=== PATIENT | male | born 1955 | race Caucasian/White ===

== ENCOUNTER 2018-09-28 17:16 | Emergency (ER) | payer OTHER ==
[2018-09-28 17:34] VITALS: BP 119/79
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
[2018-09-28 19:31] LABS: ABSOLUTE LYMPHOCYTES (AUTO) 1.5 10^3/uL (0.5-4.7); ABSOLUTE MONOCYTES (AUTO) 0.6 10^3/uL (0.1-1.4); ABSOLUTE NEUT (AUTO) 3.4 10^3/uL (1.7-8.2); BASOPHILS % (AUTO) 0.4 % (0-2); EOSINOPHILS % (AUTO) 0.3 % (0-6); HEMATOCRIT 47.1 % (37.9-51.0); LYMPHOCYTES % (AUTO) 27.8 % (13-45); MEAN CORPUSCULAR HEMOGLOBIN 36.4 pg (27.0-33.4); MEAN CORPUSCULAR VOLUME 107 fl (80-97); PLATELET COUNT 136 10^3/uL (150-450); RED CELL DISTRIBUTION WIDTH 13.8 % (11.5-14.0); SEGMENTED NEUTROPHILS % (AUTO) 61.5 % (42-78); TOTAL CELLS COUNTED % (AUTO) 100 %; WHITE BLOOD COUNT 5.5 10^3/uL (4.0-10.5)
[2018-09-28 19:47] LABS: APPEARANCE,URINE SLIGHTLY-CLOUDY; BILIRUBIN,URINE NEGATIVE (NEGATIVE); COLOR,URINE AMBER; GLUCOSE, URINE NEGATIVE (NEGATIVE); KETONES,URINE 20 mg/dL (NEGATIVE); LEUKOCYTE ESTERASE,URINE SMALL (NEGATIVE); NITRITE,URINE NEGATIVE (NEGATIVE); PROTEIN,URINE 100 mg/dL (NEGATIVE)
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
[2018-09-28 19:58] LABS: ALANINE AMINOTRANSFERASE 68 U/L (21-72); ALBUMIN 5.1 g/dL (3.5-5.0); ALCOHOL 237 mg/dL (NONE DETECTED); ALKALINE PHOSPHATASE 127 U/L (38-126); ANION GAP 16 (5-19); ASPARTATE AMINO TRANSFERASE 330 U/L (17-59); BILIRUBIN,DIRECT 0.6 mg/dL (0.0-0.4); BILIRUBIN,TOTAL 0.9 mg/dL (0.2-1.3); BLOOD UREA NITROGEN 7 mg/dL (7-20); CALCIUM 9.9 mg/dL (8.4-10.2); CARBON DIOXIDE 26 mmol/L (22-30); CHLORIDE 96 mmol/L (98-107); GLUCOSE 94 mg/dL (75-110); POTASSIUM 4.5 mmol/L (3.6-5.0); SODIUM 138.3 mmol/L (137-145); TOTAL PROTEIN 8.9 g/dL (6.3-8.2)
[2018-09-28 20:03] LABS: URINE AMPHETAMINES SCREEN NEGATIVE; URINE BARBITURATES SCREEN NEGATIVE; URINE BENZODIAZEPINES SCREEN NEGATIVE; URINE COCAINE SCREEN NEGATIVE; URINE MARIJUANA (THC) SCREEN NEGATIVE; URINE METHADONE SCREEN NEGATIVE; URINE PHENCYCLIDINE SCREEN NEGATIVE
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
== END 2018-09-28 22:59 | disposition home or self-care (01) ==
LOC: ER 17:16
DX: F10.920 Alcohol use, unspecified with intoxication, uncomplicated (principal); Y90.7 Blood alcohol level of 200-239 mg/100 ml; R10.30 Lower abdominal pain, unspecified; M25.561 Pain in right knee; G47.9 Sleep disorder, unspecified; F17.210 Nicotine dependence, cigarettes, uncomplicated; I10 Essential (primary) hypertension; Z85.46 Personal history of malignant neoplasm of prostate
CPT/HCPCS: 36415; 70450; 72125; 80053; 80307; 81001; 85025; 87086; 87088; 87186; 99283

== ENCOUNTER → 2019-02-13 | Outpatient (CLI) | payer OTHER ==
--- NOTE | 2019-02-13 09:43 | RADIOLOGY REPORT (SQ) ---
EXAM DESCRIPTION: CERV SP 4 OR 5 VIEWS COMPLETED DATE/TIME: 02/13/2019 9:25 am REASON FOR STUDY: BACK PAIN COMPARISON: 09/28/2018 NUMBER OF VIEWS: Five views. TECHNIQUE: AP, lateral, obliques and odontoid radiographic images acquired of the cervical spine. LIMITATIONS: None. FINDINGS: MINERALIZATION: Normal. ALIGNMENT: Anatomic. VERTEBRAE: Vertebral bodies without definite fracture. There are multilevel endplate degenerative ch alison with osteophytosis and endplate irregularity. . DISCS: Multilevel endplate change with mild disc height loss greatest at C5-6. Disc spaces are relat ively well-maintained. FORAMINA: Uncovertebral and mild facet hypertrophy with resultant mild osseous neural foraminal narro wing greatest at C5-6 bilaterally. LATERAL AND POSTERIOR ELEMENTS: No dislocation. Minimal facet arthropathy. HARDWARE: None in the spine. SOFT TISSUES: Vascular calcifications. OTHER: No other significant finding. IMPRESSION: 1. No evidence of acute bony abnormality of the cervical spine. 2. Multilevel endplate degenerative change greatest at C5-6. Mild bilateral osseous neural foramina l narrowing from uncovertebral facet hypertrophy. TECHNICAL DOCUMENTATION: JOB ID: [id number]- All Rights Reserved Reading location - IP/workstation name: [email or web address]
== END ==
LOC: RAD 08:41
PROVIDERS: ATTEND Family Medicine
DX: M54.2 Cervicalgia (principal)
CPT/HCPCS: 72050

== ENCOUNTER 2019-03-06 20:51 | Emergency (ER) | payer SELFPAY ==
[2019-03-06 21:45] LABS: ABSOLUTE BASOPHILS # (AUTO) 0.1 10^3/uL (0.0-0.2); ABSOLUTE EOSINOPHILS # (AUTO) 0.1 10^3/uL (0.0-0.6); ABSOLUTE LYMPHOCYTES (AUTO) 1.3 10^3/uL (0.5-4.7); ABSOLUTE NEUT (AUTO) 13.1 10^3/uL (1.7-8.2); BASOPHILS % (AUTO) 0.9 % (0-2); EOSINOPHILS % (AUTO) 0.7 % (0-6); HEMATOCRIT 46.3 % (37.9-51.0); HEMOGLOBIN 15.6 g/dL (13.5-17.0); MEAN CORPUSCULAR HEMOGLOBIN 32.1 pg (27.0-33.4); MEAN CORPUSCULAR HGB CONC 33.7 g/dL (32.0-36.0); MEAN CORPUSCULAR VOLUME 95 fl (80-97); MONOCYTES % (AUTO) 6.5 % (3-13); PLATELET COUNT 316 10^3/uL (150-450); RED BLOOD COUNT 4.86 10^6/uL (4.35-5.55); RED CELL DISTRIBUTION WIDTH 14.3 % (11.5-14.0); SEGMENTED NEUTROPHILS % (AUTO) 83.9 % (42-78); TOTAL CELLS COUNTED % (AUTO) 100 %; WHITE BLOOD COUNT 15.6 10^3/uL (4.0-10.5)
[2019-03-06] MEDS ORDERED: NORMAL SALINE 500 ML IV ONE ×2 (21:50→22:59)
--- NOTE | 2019-03-06 21:52 | ER Document Report ---
ED General - General Chief Complaint: Weakness Stated Complaint: WEAKNESS Time Seen by Provider: 03/06/19 21:40 Primary Care Provider: [facility] [Provider Group] - Follow up in 3-5 days Notes: Patient is a 63-year-old male that comes from home by EMS for chief complaint of generalized worsening weakness for the past couple weeks. He also states he has some pain in his left shoulder and back intermittently. He states pain will run down the top of his shoulder to his left arm mainly. He denies numbness or weakness. He denies vomiting, fever, chest pain, shortness of breath. He states that he was just released from [facility] where he was incarcerated for a short term after a DWI. He states he has a history of prostate cancer and he is incontinent as a result but he denies medical history otherwise. He denies any current medications. He does not see a local primary care. Patient speaks some Kinyarwanda but mostly speaks Cymro and requires the fruux telegraph messenger system. TRAVEL OUTSIDE OF THE [place] IN LAST 30 DAYS: No - Related Data Allergies/Adverse Reactions: No Known Allergies Allergy (Verified 09/28/18 17:19) Past Medical History - General Information source: Patient - Social History Smoking Status: Current Every Day Smoker Smoking Education Provided: Yes - <3 min Frequency of alcohol use: Heavy Drug Abuse: None Lives with: Family Family History: Reviewed & Not Pertinent Patient has suicidal ideation: No Patient has homicidal ideation: No - Past Medical History Cardiac Medical History: Reports: Hx Hypertension Renal/ Medical History: Denies: Hx Peritoneal Dialysis Malignancy Medical History: Reports Hx Prostate Cancer Past Surgical History: Reports: Other - Prostate surgery 2016 - Immunizations Hx Diphtheria, Pertussis, Tetanus Vaccination: Yes Review of Systems - Review of Systems Constitutional: See HPI EENT: No symptoms reported Cardiovascular: See HPI Respiratory: No symptoms reported Gastrointestinal: No symptoms reported Genitourinary: No symptoms reported Male Genitourinary: No symptoms reported Musculoskeletal: See HPI Skin: No symptoms reported Hematologic/Lymphatic: No symptoms reported Neurological/Psychological: See HPI Physical Exam - Vital signs Vitals: Temp Pulse Resp BP Pulse Ox 98.4 F 122 H 20 184/107 H 93 03/06/19 20:55 03/06/19 20:55 03/06/19 20:55 03/06/19 20:55 03/06/19 20:55 - Notes Notes: GENERAL: Alert, interacts well. Somewhat chronically ill-appearing. Thin. HEAD: Normocephalic, atraumatic. EYES: Pupils equal, round, and reactive to light. Extraocular movements intact. ENT: Oral mucosa dry, tongue midline. Oropharynx unremarkable. Airway patent. NECK: Full range of motion. Supple. Trachea midline. LUNGS: Clear to auscultation bilaterally, no wheezes, rales, or rhonchi. No respiratory distress. HEART: Regular rate and rhythm. No murmur ABDOMEN: Soft, non-tender. Non-distended. EXTREMITIES: Pain with range of motion of the left upper extremity, pain is mainly in the left posterior shoulder. Moves all 4 extremities spontaneously. No edema, normal radial and dorsalis pedis pulses bilaterally. No cyanosis. BACK: Some mild generalized tenderness over the mid to upper back mainly over the paracervical region. No cervical, thoracic, lumbar midline tenderness. No saddle anesthesia, normal distal neurovascular exam. Moves all extremities in full range of motion. NEUROLOGICAL: Alert and oriented x3. Normal speech. Cranial nerves II through XII grossly intact. PSYCH: Normal affect, normal mood. SKIN: Warm, dry, normal turgor. No rashes or lesions noted. Course - Re-evaluation Re-evalutation: Patient was tachycardic initially, however he was given IV fluids and after the second bolus of 500 cc normal saline his tachycardia resolved. Patient is very restless in bed initially but this improved. He does have generalized pain over his back, this is worse on palpation and with movement. He states this is been ongoing. He also states that he is eating very poorly, he admits to drinking alcohol on a regular basis, he states he did not feel good after he eats and therefore he is eating less and is losing weight. Patient was given p.o., he tolerated this without any difficulty after being provided with medications. CBC shows leukocytosis, nonspecific, urine clean, chest x-ray unremarkable, vital signs unremarkable except for episodes of hypertension, patient is very thin and does not cooperate with blood pressure getting checked, this was checked manually and is 180 systolic. I discussed this with patient. Patient states that he does need primary care and he will follow-up if referred to have this treated. He also states that he would take medications for his stomach and muscle relaxers for his back. His EKG is nonspecific, 2 troponins are negative without significant change, he has not actually had any chest pain, shortness of breath, dizziness, vomiting, fever, or passing out. On reevaluation his only complaint is musculoskeletal pain in his back. He is conversational and nontoxic. I did have to use the telegraph messenger system because he mainly speaks Cymro. I do not suspect underlying infection, I do not see evidence of ACS, patient is able to stand and walk, he has no neurological deficits. Patient states appreciation for care and evaluation and he states he is ready to go home, he states that he lives with his daughter and he wants her to pick him up. He states that he realizes how much his smoking and alcohol have impacted him and his health is getting worse, he states that he is going to stop drinking first. He denies history of withdrawals. There is no obvious cancerous lesion on the chest x-ray in the locations of his pain, he states he will follow-up with primary care for additional testing however. He does state that he will come back if he worsens including headache, chest pain, fever, or any other worsening symptoms. He does state that he will follow-up close with primary care for evaluation because he has been losing a lot of weight and because his blood pressures are abnormal here tonight. Patient discharged with return precautions. - Vital Signs Vital signs: Temp Pulse Resp BP Pulse Ox 98.1 F 82 19 180/100 H 94 03/07/19 05:46 03/07/19 05:46 03/07/19 05:46 03/07/19 05:46 03/07/19 05:46 - Laboratory Result Diagrams: 03/06/19 21:26 03/06/19 21:26 Laboratory results interpreted by me: 03/06/19 03/06/19 03/06/19 21:26 21:26 21:40 WBC 15.6 H RDW 14.3 H Lymph % (Auto) 8.0 L Absolute Neuts (auto) 13.1 H Seg Neutrophils % 83.9 H Carbon Dioxide 21 L Calcium 10.4 H Alkaline Phosphatase 206 H Urine Ketones TRACE H - EKG Interpretation by Me Additional EKG results interpreted by me: EKG shows sinus tachycardia at a rate of 121, borderline Q waves inferiorly, no overt T wave inversions or ST segment changes in consecutive leads. QTC of 454. Discharge - Discharge Clinical Impression: Generalized weakness, Alcohol abuse, Dehydration, Elevated blood pressure reading Back pain Qualifiers: Back pain location: back pain in unspecified location Chronicity: chronic Back pain laterality: left Qualified Code(s): M54.9 - Dorsalgia, unspecified Left shoulder pain Qualifiers: Chronicity: acute Qualified Code(s): M25.512 - Pain in left shoulder Condition: Stable Disposition: HOME, SELF-CARE Instructions: Oral Narcotic Medication ([facility]) Additional Instructions: Your tests do not show concerning findings other than some dehydration today. I am concerned your alcohol use has made your stomach inflamed and made it hard to eat. Drink fluids, take the carafate and pepcid for your stomach. Take the robaxin for your body aches. Your blood pressure needs to be rechecked and you need more tests to make sure your weight loss and eating problem go away. Please call the listed office and be seen for more testing. Take the phenergan for nausea if you need to. Stop drinking alcohol. Come back if you are worse (throwing up, fever, chest pain, difficulty breathing, abdominal pain, passing out, etc). Twoje testy georgina pokazuja dzisiaj innych wynikw ni niektre odwodnienie. Obawiam sie, ze spoywanie alkoholu spowodowao valeri zapalny odka i utrudnio jedzenie. Pij pyny, we karafat i pieprz do ?o??dka. We? robaksyn? na ble kit?a. Twoje ci?nienie krwi musi zosta? ponownie sprawdzone i potrzebujesz wi?cej testw, alexander upewni? si?, ?e utrata masy kit?a i problemy z jedzeniem znikn?. Zadzwo? do wymienionego biura i zobacz wi?cej testw. Je?li potrzebujesz, we? fenergan na nudno?ci. Przesta? pi? alkohol. Wr?, je?li jeste? niranjan (wymiotowanie, gor?czka, bl w klatce robertsiowej, trudno?ci w haim, bl hamlet mancia itp.). Prescriptions: Sucralfate [Carafate 1 gm Tablet] 1 gm PO QID #20 tablet Famotidine [Pepcid 20 mg Tablet] 20 mg PO BID #20 tablet Promethazine HCl [Phenergan 25 mg Tablet] 25 mg PO Q6H PRN #20 tablet PRN Reason: Methocarbamol [Robaxin 500 mg Tablet] 500 mg PO QID PRN #20 tablet PRN Reason: Forms: Smoking Cessation Education, Elevated Blood Pressure Referrals: [facility] [Provider Group] - Follow up in 3-5 days
[2019-03-06 21:55] LABS: ALBUMIN 4.3 g/dL (3.5-5.0); ALKALINE PHOSPHATASE 206 U/L (38-126); ANION GAP 15 (5-19); ASPARTATE AMINO TRANSFERASE 23 U/L (17-59); BILIRUBIN,DIRECT 0.1 mg/dL (0.0-0.4); BILIRUBIN,TOTAL 0.5 mg/dL (0.2-1.3); BLOOD UREA NITROGEN 12 mg/dL (7-20); CALCIUM 10.4 mg/dL (8.4-10.2); CARBON DIOXIDE 21 mmol/L (22-30); CHLORIDE 101 mmol/L (98-107); GLUCOSE 105 mg/dL (75-110); POTASSIUM 4.8 mmol/L (3.6-5.0); TOTAL PROTEIN 7.8 g/dL (6.3-8.2)
[2019-03-06 22:02] LABS: APPEARANCE,URINE CLEAR; BILIRUBIN,URINE NEGATIVE (NEGATIVE); COLOR,URINE YELLOW; GLUCOSE, URINE NEGATIVE (NEGATIVE); KETONES,URINE TRACE mg/dL (NEGATIVE); LEUKOCYTE ESTERASE,URINE NEGATIVE (NEGATIVE); NITRITE,URINE NEGATIVE (NEGATIVE); PROTEIN,URINE NEGATIVE (NEGATIVE); URINE SPECIFIC GRAVITY 1.015; UROBILINOGEN,URINE NEGATIVE mg/dL (<2.0)
--- NOTE | 2019-03-06 22:42 | RADIOLOGY REPORT (SQ) ---
EXAM DESCRIPTION: XR CHEST 1 VIEW COMPLETED DATE/TME: 03/06/2019 21:50 CLINICAL HISTORY: 63 years Male weakness COMPARISON: None. FINDINGS: Pulmonary hyperinflation consistent with COPD. Scarring or atelectasis adjacent to the left heart border. Aorta is mildly tortuous. The cardiomediastinal silhouette appears unremarkable. No consolidating infiltrates or pleural effusions. No pneumothorax. IMPRESSION: Pulmonary hyperinflation consistent with COPD and emphysematous change No acute abnormality is identified.
[2019-03-07] MEDS ORDERED: ACETAMINOPHEN 325 MG TABLET PO ONE (00:54)
[2019-03-07] MEDS ORDERED: OXYCODONE HCL IR 5 MG TABLET PO ONE (04:09)
[2019-03-07] MEDS ORDERED: SUCRALFATE 1 GM TABLET PO ONE (04:09)
[2019-03-07] MEDS ORDERED: HYDROCODONE/ACETAMINOPHEN 5-325 MG (6 TAB/ER DISP) PO PRN (04:25)
[2019-03-07 05:47] VITALS: BP 180/100
--- NOTE | 2019-03-07 23:42 | EKG REPORT ---
SEVERITY:- ABNORMAL ECG - SINUS TACHYCARDIA INFERIOR INFARCT, AGE INDETERMINATE CONSIDER ANTERIOR INFARCT : Confirmed by: Robb Conner 07-Mar-2019 23:42:04
== END 2019-03-07 06:24 | disposition home or self-care (01) ==
LOC: ER 20:51
DX: R53.1 Weakness (principal); F10.10 Alcohol abuse, uncomplicated; E86.0 Dehydration; M25.512 Pain in left shoulder; F17.200 Nicotine dependence, unspecified, uncomplicated; I10 Essential (primary) hypertension; Z85.46 Personal history of malignant neoplasm of prostate
CPT/HCPCS: 93005; 99284; 96360; 36415; 80307; 83690; 83735; 85025; 80053; 81001; 84484; 71045; 93010; J7040

== ENCOUNTER 2019-03-22 18:24 | Emergency (ER) | payer SELFPAY ==
--- NOTE | 2019-03-22 21:00 | EKG REPORT ---
SEVERITY:- ABNORMAL ECG - SINUS TACHYCARDIA ATRIAL PREMATURE COMPLEX PROBABLE LEFT ATRIAL ABNORMALITY LEFT VENTRICULAR HYPERTROPHY BORDERLINE PROLONGED QT INTERVAL : Confirmed by: Filippo Kirkland MD 22-Mar-2019 20:59:45
[2019-03-22] MEDS ORDERED: OXYCODONE HCL IR 5 MG TABLET PO ONE (21:21)
--- NOTE | 2019-03-22 21:21 | ER Document Report ---
ED General - General Chief Complaint: Arm Pain Stated Complaint: ARM PAIN Time Seen by Provider: 03/22/19 21:04 Primary Care Provider: HODA LINDSEY MD [ACTIVE STAFF] - Follow up in 3-5 days Notes: 63-year-old male presents with bilateral hand pain that is been ongoing for "months." Patient denies any specific injury. Patient states it is intermittent and sometimes he has trouble with his fingers such as changing the channel on the remote due to the pain. Patient states the reason why he called 911 today was because of his right hand pain but his left hand is also hurting. Patient also states that sometimes his back hurts as well. Patient denies any chest pain, shortness of breath, weakness. TRAVEL OUTSIDE OF THE [place] IN LAST 30 DAYS: No - Related Data Allergies/Adverse Reactions: No Known Allergies Allergy (Verified 09/28/18 17:19) Past Medical History - Social History Smoking Status: Unknown if Ever Smoked Family History: Reviewed & Not Pertinent Patient has suicidal ideation: No Patient has homicidal ideation: No - Past Medical History Cardiac Medical History: Reports: Hx Hypertension Renal/ Medical History: Denies: Hx Peritoneal Dialysis Malignancy Medical History: Reports Hx Prostate Cancer Past Surgical History: Reports: Other - Prostate surgery 2016 - Immunizations Hx Diphtheria, Pertussis, Tetanus Vaccination: Yes Review of Systems - Review of Systems Notes: Constitutional: Negative for fever. HENT: Negative for sore throat. Eyes: Negative for visual changes. Cardiovascular: Negative for chest pain. Respiratory: Negative for shortness of breath. Gastrointestinal: Negative for abdominal pain, vomiting or diarrhea. Genitourinary: Negative for dysuria. Musculoskeletal: Positive for bilateral hand pain. Negative for back pain. Skin: Negative for rash. Neurological: Negative for headaches, weakness or numbness. 10 point ROS negative except as marked above and in HPI. Physical Exam - Vital signs Vitals: Resp Pulse Ox 28 H 95 03/22/19 18:58 03/22/19 18:58 - Notes Notes: GENERAL: Well-appearing, well-nourished and in no acute distress. HEAD: Atraumatic, normocephalic. EYES: Pupils equal round and reactive to light, extraocular movements intact, sclera anicteric, conjunctiva are normal. LUNGS: Breath sounds clear to auscultation bilaterally and equal. No wheezes rales or rhonchi. HEART: Regular rate and rhythm without murmurs, rubs or gallops. ABDOMEN: Soft, nontender. No guarding, no rebound. No masses appreciated. EXTREMITIES: Normal range of motion, no pitting or edema. No clubbing or cyanosis. Bilateral hands: no edema, FROM bilaterally, radial pulse 2+. NEUROLOGICAL: Cranial nerves II through XII grossly intact. Normal speech, normal gait. PSYCH: Normal mood, normal affect. SKIN: Warm, Dry, normal turgor, no rashes or lesions noted. Course - Re-evaluation Re-evalutation: 03/22/19 63-year-old male presents with bilateral hand pain that is ongoing for "months". Patient denies any injury. Patient denies any chest pain, shortness of breath, nausea/vomiting. X-ray of bilateral hands ordered. EKG was also ordered and shows no ST elevation. 03/22/19 22:50 Bilateral hand x-rays show mild degenerative changes. Discussed results with pt including that his pain is most likely due to arthritis. Pt given follow up with PCP. Pt also sent home with pain medications. Pt voices understanding and agrees with plan of care. 03/22/19 23:00 [place] drug database reviewed. No recent opioid prescriptions. - Vital Signs Vital signs: Temp Pulse Resp BP Pulse Ox 98.4 F 22 H 173/106 H 95 03/22/19 19:00 03/22/19 21:10 03/22/19 21:10 03/22/19 21:10 Discharge - Discharge Clinical Impression: Bilateral hand pain Condition: Stable Disposition: HOME, SELF-CARE Additional Instructions: Your hand x-ray shows arthritis. Please take medication as prescribed. Do not drink alcohol or drive while taking medication as it may make you drowsy. Follow up with doctor listed in 3-5 days. Return to ER for any worsening symptoms, in cluding fever, worsening pain, chest pain, short of breath, vomiting, or any other symptoms that are concerning to you. Doug d?melvin phong king staww. Prosz? wzi?? michelle jimenez i. Georginaenrico adamsohnatalie ani georgina prowad? jay russo, poniewa? mo?e to [facility]? senno??. Skontaktuj si? z lekarzem wymienionym w ci?gu 3-5 dni. Wr? do pogotowia, alexander uzyska? objawy pogarszaj?ce si?, w tym gor?czk?, nasilaj?cy si? bl, bl w klatce piersiowej, duszno??, wymioty lub wszelkie inne objawy, ktre Ci? dotycz?. Prescriptions: Oxycodone HCl 5 mg PO Q6 #10 capsule Referrals: HODA LINDSEY MD [ACTIVE STAFF] - Follow up in 3-5 days
--- NOTE | 2019-03-22 22:11 | RADIOLOGY REPORT (SQ) ---
XR HAND 3 VIEWS BILATERAL CLINICAL STATEMENT: bilateral hand pain COMPARISON: None FINDINGS: Bony alignment is anatomic. There is no fracture or dislocation. The soft tissues are unremarkable. Mild degenerative changes of the interphalangeal joints. IMPRESSION: No fracture.
[2019-03-22 23:09] VITALS: BP 190/108
== END 2019-03-22 23:15 | disposition home or self-care (01) ==
LOC: ER 18:24
DX: M79.641 Pain in right hand (principal); M79.642 Pain in left hand; M54.9 Dorsalgia, unspecified; I10 Essential (primary) hypertension; Z85.46 Personal history of malignant neoplasm of prostate
CPT/HCPCS: 93005; 93010; 99284

== ENCOUNTER 2019-04-07 13:57 | Inpatient (IN) | payer SELFPAY ==
[2019-04-07] MEDS ORDERED: RINGERS SOLUTION,LACTATED 1,000 ML IV ONE ×2 (14:17→15:55)
--- NOTE | 2019-04-07 14:18 | ER Document Report ---
ED General - General Chief Complaint: Won't Eat Stated Complaint: GENERAL WEAKNESS Time Seen by Provider: 04/07/19 14:08 TRAVEL OUTSIDE OF THE [place] IN LAST 30 DAYS: No - HPI Context: Limited history due to patient's mental status. Per the nursing staff, daughter called mobile crisis. Patient failure to thrive. Was told nursing staff that patient has not eaten over 3 weeks. His normal mental status unknown at this time. He does follow commands but he just rambles. He moves all extremities without difficulty. - Related Data Allergies/Adverse Reactions: No Known Allergies Allergy (Verified 09/28/18 17:19) Past Medical History - Social History Smoking Status: Current Every Day Smoker Family History: Reviewed & Not Pertinent Patient has suicidal ideation: No Patient has homicidal ideation: No - Past Medical History Cardiac Medical History: Reports: Hx Hypertension Renal/ Medical History: Denies: Hx Peritoneal Dialysis Malignancy Medical History: Reports Hx Prostate Cancer Past Surgical History: Reports: Other - Prostate surgery 2016 - Immunizations Hx Diphtheria, Pertussis, Tetanus Vaccination: Yes Review of Systems - Review of Systems -: Yes ROS unobtainable due to patient's medical condition Physical Exam - Vital signs Vitals: Resp Pulse Ox 19 97 04/07/19 14:07 04/07/19 14:07 Interpretation: Tachycardic - General General appearance: Other - Cachectic, confused - HEENT Head: Normocephalic, Atraumatic Eyes: Normal Conjunctiva: Normal Pupils: PERRL Mucous membranes: Dry - Respiratory Respiratory status: No respiratory distress Chest status: Nontender Breath sounds: Normal Chest palpation: Normal - Cardiovascular Rhythm: Tachycardia Heart sounds: Normal auscultation Murmur: No - Abdominal Inspection: Normal Distension: No distension Bowel sounds: Normal Tenderness: Nontender - Back Back: Normal. No: Vertebra tenderness - Neurological Cognition: Confused Niall Coma Scale Motor: Obeys Commands Course - Re-evaluation Re-evalutation: 04/07/19 16:04 Patient's heart rate came down with fluids. Chest x-ray shows right upper lobe pneumonia. Will provide ceftriaxone doxycycline, Dr. mendoza to accept. Patient clinically stable at this time with normal lactic. - Vital Signs Vital signs: Temp Pulse Resp BP Pulse Ox 98.7 F 18 153/95 H 95 04/07/19 14:08 04/07/19 15:09 04/07/19 15:09 04/07/19 15:09 - Laboratory Result Diagrams: 04/07/19 14:25 04/07/19 14:25 Laboratory results interpreted by me: 04/07/19 04/07/19 04/07/19 14:25 14:25 14:25 WBC 20.4 H RDW 15.8 H Seg Neuts % (Manual) 86 H Lymphocytes % (Manual) 7 L Abs Neuts (Manual) 17.5 H Potassium 3.3 L Chloride 96 L BUN 22 H Creatinine 0.36 L Glucose 113 H Direct Bilirubin 0.6 H Alkaline Phosphatase 171 H TSH 0.40 L - Diagnostic Test Radiology reviewed: Image reviewed, Reports reviewed - EKG Interpretation by Me Additional EKG results interpreted by me: 04/07/19 16:03 Time 1437 Rate of 109, sinus tachycardia, left axis deviation, no concerning ST depressions or elevations, no significant change from prior 03/22/2019 Discharge - Discharge Clinical Impression: Right upper lobe pneumonia Qualifiers: Pneumonia type: due to unspecified organism Qualified Code(s): J18.9 - Pneumonia, unspecified organism Altered mental status Qualifiers: Altered mental status type: unspecified Qualified Code(s): R41.82 - Altered mental status, unspecified Disposition: ADMITTED INPATIENT Admitting Provider: Silverio (Hospitalist) Unit Admitted: Medical Floor
[2019-04-07 15:00] LABS: HEMATOCRIT 41.7 % (37.9-51.0); HEMOGLOBIN 13.8 g/dL (13.5-17.0); MEAN CORPUSCULAR HEMOGLOBIN 29.9 pg (27.0-33.4); MEAN CORPUSCULAR HGB CONC 33.2 g/dL (32.0-36.0); MEAN CORPUSCULAR VOLUME 90 fl (80-97); PLATELET COUNT 194 10^3/uL (150-450); RED BLOOD COUNT 4.62 10^6/uL (4.35-5.55); RED CELL DISTRIBUTION WIDTH 15.8 % (11.5-14.0); WHITE BLOOD COUNT 20.4 10^3/uL (4.0-10.5)
--- NOTE | 2019-04-07 15:03 | RADIOLOGY REPORT (SQ) ---
EXAM DESCRIPTION: CHEST SINGLE VIEW COMPLETED DATE/TIME: 04/07/2019 2:47 pm REASON FOR STUDY: ams COMPARISON: 03/06/2019 EXAM PARAMETERS: NUMBER OF VIEWS: One view. TECHNIQUE: Single frontal radiographic view of the chest acquired. RADIATION DOSE: NA LIMITATIONS: None. FINDINGS: LUNGS AND PLEURA: There is heterogeneous opacity of the right upper lobe, new compared to prior examination and concerning for infection. MEDIASTINUM AND HILAR STRUCTURES: No masses. Contour normal. HEART AND VASCULAR STRUCTURES: Cardiomegaly. BONES: No acute findings. HARDWARE: None in the chest. OTHER: No other significant finding. IMPRESSION: There is heterogeneous opacity of the right upper lobe, new compared to prior examinatio n and concerning for infection. Cardiomegaly. TECHNICAL DOCUMENTATION: JOB ID: [id number] [employer]- All Rights Reserved Reading location - IP/workstation name: [email or web address]
--- NOTE | 2019-04-07 15:08 | RADIOLOGY REPORT (SQ) ---
EXAM DESCRIPTION: CT HEAD WITHOUT COMPLETED DATE/TIME: 04/07/2019 3:00 pm REASON FOR STUDY: ams COMPARISON: 09/28/2018 TECHNIQUE: Axial images acquired through the brain without intravenous contrast. Images reviewed wi th bone, brain and subdural windows. Additional sagittal and coronal reconstructions were generated. Images stored on PACS. All CT scanners at this facility use dose modulation, iterative reconstruction, and/or weight based d osing when appropriate to reduce radiation dose to as low as reasonably achievable (ALARA). [facility]: Dose Right [facility]: CareDose [facility]: Dose Right [facility]: Teradose 4D [facility]: [employer] RADIATION DOSE: CT Rad equipment meets quality standard of care and radiation dose reduction techniq ues were employed. CTDIvol: 53.2 mGy. DLP: 991 mGy-cm. mGy. LIMITATIONS: None. FINDINGS: VENTRICLES: Normal size and contour. CEREBRUM: No masses. No hemorrhage. No midline shift. No evidence for acute infarction. Normal gra y/white matter differentiation. No areas of low density in the white matter. CEREBELLUM: No masses. No hemorrhage. No alteration of density. No evidence for acute infarction. EXTRAAXIAL SPACES: No fluid collections. No masses. ORBITS AND GLOBE: No intra- or extraconal masses. Normal contour of globe without masses. CALVARIUM: No fracture. PARANASAL SINUSES: No fluid or mucosal thickening. SOFT TISSUES: No mass or hematoma. OTHER: No other significant finding. IMPRESSION: No acute intracranial pathology. EVIDENCE OF ACUTE STROKE: NO. COMMENT: Quality ID # [id number]: Final reports with documentation of one or more dose reduction techniques (e.g., Automated exposure control, adjustment of the mA and/or kV according to patient size, use of iterative reconstruction technique) TECHNICAL DOCUMENTATION: JOB ID: [id number] [employer]- All Rights Reserved Reading location - IP/workstation name: [email or web address]
[2019-04-07 15:11] LABS: ALBUMIN 3.9 g/dL (3.5-5.0); ALKALINE PHOSPHATASE 171 U/L (38-126); ANION GAP 18 (5-19); ASPARTATE AMINO TRANSFERASE 27 U/L (17-59); BILIRUBIN,DIRECT 0.6 mg/dL (0.0-0.4); BILIRUBIN,TOTAL 1.1 mg/dL (0.2-1.3); BLOOD UREA NITROGEN 22 mg/dL (7-20); CARBON DIOXIDE 24 mmol/L (22-30); CHLORIDE 96 mmol/L (98-107); GLUCOSE 113 mg/dL (75-110); POTASSIUM 3.3 mmol/L (3.6-5.0); TOTAL PROTEIN 7.8 g/dL (6.3-8.2)
[2019-04-07 15:43] LABS: ABSOLUTE LYMPHOCYTES# (MANUAL) 1.4 10^3/uL (0.5-4.7); ABSOLUTE MONOCYTES # (MANUAL) 1.4 10^3/uL (0.1-1.4); BASOPHILS % (MANUAL) 0 % (0-2); EOSINOPHILS % (MANUAL) 0 % (0-6); LYMPHOCYTES % (MANUAL) 7 % (13-45); MONOCYTES % (MANUAL) 7 % (3-13); SEGMENTED NEUTROPHILS % (MAN) 86 % (42-78); TOTAL CELLS COUNTED 100
[2019-04-07 15:44] LABS: ANISOCYTOSIS SLIGHT; PLATELET COMMENT ADEQUATE; POLYCHROMASIA SLIGHT
[2019-04-07] MEDS ORDERED: CEFTRIAXONE 1 GM/D5W RTU 1 GM/50 ML RTUPB IV ONE (15:59)
[2019-04-07] MEDS ORDERED: DOXYCYCLINE HYCLATE INJ 100 MG VIAL IV ONE (16:00)
[2019-04-07] MEDS ORDERED: MAGNESIUM HYDROXIDE SUSP 30 ML UDCUP PO PRN (16:58)
[2019-04-07] MEDS ORDERED: MAG HYDROX/AL HYDROX/SIMETH SUSP 30 ML UDCUP PO PRN (16:58)
[2019-04-07] MEDS ORDERED: ONDANSETRON 4 MG TAB.RAPDIS PO PRN (16:58)
[2019-04-07] MEDS ORDERED: ALBUTEROL SULFATE 0.083% NEB 2.5 MG/3 ML AMPUL NEB PRN (16:58)
[2019-04-07] MEDS ORDERED: ACETAMINOPHEN 325 MG TABLET PO PRN (16:58)
[2019-04-07 17:06] LABS: AMORPHOUS SEDIMENT,URINE TRACE /HPF; APPEARANCE,URINE CLOUDY; BILIRUBIN,URINE SMALL (NEGATIVE); COLOR,URINE AMBER; GLUCOSE, URINE NEGATIVE (NEGATIVE); KETONES,URINE 20 mg/dL (NEGATIVE); LEUKOCYTE ESTERASE,URINE NEGATIVE (NEGATIVE); NITRITE,URINE POSITIVE (NEGATIVE); PROTEIN,URINE 100 mg/dL (NEGATIVE); URINE SPECIFIC GRAVITY 1.028
--- NOTE | 2019-04-07 17:26 | PDOC H&P ---
History of Present Illness Admission Date/PCP: 04/07/19 16:31 Patient complains of: Encounter limited by language barrier. Patient has dehydration and possible urinary tract infection with possible pneumonia as well History of Present Illness: HARHS KELLEY is a 63 year old male Past Medical History Cardiac Medical History: Reports: Hypertension Past Surgical History Past Surgical History: Reports: Other - Prostate surgery 2016 Social History Smoking Status: Current Every Day Smoker Family History Family History: Reviewed & Not Pertinent Parental Family History Reviewed: No - Unable to review due to language barrier Children Family History Reviewed: No Sibling(s) Family History Reviewed.: No Medication/Allergy Home Medications: Chlordiazepoxide HCl [Librium 25 mg Capsule] 25 mg PO Q6 PRN #10 capsule 08/08/12 No Home Medications 1 08/08/12 Famotidine [Pepcid 20 mg Tablet] 20 mg PO BID #20 tablet 03/07/19 Methocarbamol [Robaxin 500 mg Tablet] 500 mg PO QID PRN #20 tablet 03/07/19 Promethazine HCl [Phenergan 25 mg Tablet] 25 mg PO Q6H PRN #20 tablet 03/07/19 Sucralfate [Carafate 1 gm Tablet] 1 gm PO QID #20 tablet 03/07/19 Oxycodone HCl 5 mg PO Q6 #10 capsule 03/22/19 Allergies/Adverse Reactions: No Known Allergies Allergy (Verified 09/28/18 17:19) Physical Exam Vital Signs: Temp Pulse Resp BP Pulse Ox 98.7 F 19 148/90 H 95 04/07/19 14:08 04/07/19 16:01 04/07/19 16:01 04/07/19 16:01 Intake & Output 04/06/19 04/07/19 04/08/19 06:59 06:59 06:59 Intake Total 1000 Balance 1000 General appearance: PRESENT: cooperative - With language barrier present, mild distress, thin Head exam: PRESENT: atraumatic, normocephalic Eye exam: PRESENT: conjunctiva pink, EOMI. ABSENT: scleral icterus Ear exam: PRESENT: normal external ear exam. ABSENT: bleeding, drainage Mouth exam: PRESENT: dry mucosa, tongue midline Respiratory exam: PRESENT: rhonchi, unlabored. ABSENT: accessory muscle use, rales, tachypnea, wheezes Cardiovascular exam: PRESENT: RRR, +S1, +S2 GI/Abdominal exam: PRESENT: normal bowel sounds, soft, other - Scaphoid abdomen. ABSENT: distended, guarding, tenderness Rectal exam: PRESENT: deferred Gentrourinary exam: ABSENT: indwelling catheter Extremities exam: ABSENT: pedal edema Musculoskeletal exam: PRESENT: other - Decreased muscle mass Neurological exam: PRESENT: alert, awake, other - Unable to further assess due to language barrier Psychiatric exam: PRESENT: flat affect. ABSENT: agitated, anxious Results Laboratory Results: 04/07/19 14:25 04/07/19 14:25 04/07/19 04/07/19 04/07/19 14:25 14:25 14:25 WBC 20.4 H RBC 4.62 Hgb 13.8 Hct 41.7 MCV 90 MCH 29.9 MCHC 33.2 RDW 15.8 H Plt Count 194 Seg Neutrophils % Not Reportable Sodium 138.1 Potassium 3.3 L Chloride 96 L Carbon Dioxide 24 Anion Gap 18 BUN 22 H Creatinine 0.36 L Est GFR ( Amer) > 60 Glucose 113 H Lactic Acid Calcium 10.0 Magnesium 1.9 Total Bilirubin 1.1 AST 27 Alkaline Phosphatase 171 H Total Protein 7.8 Albumin 3.9 TSH 0.40 L Urine Color Urine Appearance Urine pH Ur Specific [place] Urine Protein Urine Glucose (UA) Urine Ketones Urine Blood Urine Nitrite Ur Leukocyte Esterase Urine RBC (Auto) 04/07/19 04/07/19 14:25 16:00 WBC RBC Hgb Hct MCV MCH MCHC RDW Plt Count Seg Neutrophils % Sodium Potassium Chloride Carbon Dioxide Anion Gap BUN Creatinine Est GFR ( Amer) Glucose Lactic Acid 1.6 Calcium Magnesium Total Bilirubin AST Alkaline Phosphatase Total Protein Albumin TSH Urine Color PRIYA Urine Appearance CLOUDY Urine pH 5.0 Ur Specific [place] 1.028 Urine Protein 100 H Urine Glucose (UA) NEGATIVE Urine Ketones 20 H Urine Blood SMALL H Urine Nitrite POSITIVE H Ur Leukocyte Esterase NEGATIVE Urine RBC (Auto) 85 04/07/19 14:25 Troponin I < 0.012 Impressions: Chest X-Ray 04/07/19 14:16 IMPRESSION: There is heterogeneous opacity of the right upper lobe, new compared to prior examination and concerning for infection. Cardiomegaly. Head CT 04/07/19 14:16 IMPRESSION: No acute intracranial pathology. EVIDENCE OF ACUTE STROKE: NO. Assessment and Plan - Diagnosis (1) Right upper lobe pneumonia Qualifiers: Pneumonia type: due to unspecified organism Qualified Code(s): J18.9 - Pneumonia, unspecified organism Is this a current diagnosis for this admission?: Yes Plan: 04/07/2019-patient with community-acquired pneumonia. Multiple agents are possible including atypical bacteria such as pneumococcus, atypical bacteria and viral is unlikely due to the infiltrate noted on chest x-ray. We will continue the doxycycline and ceftriaxone started in the emergency department. We will continue to monitor the white blood cell count. (2) Leukocytosis Qualifiers: Leukocytosis type: other Qualified Code(s): D72.828 - Other elevated white blood cell count Is this a current diagnosis for this admission?: Yes Plan: 04/07/2019-the patient reveals a leukocytosis of 20,000. The pneumonia is the most likely etiology. We will continue to monitor as the infection is treated. (3) Hypokalemia Is this a current diagnosis for this admission?: Yes Plan: 04/07/2019-the patient is receiving lactated Ringer's. This does have some potassium chloride. I will recheck the potassium in the morning. We may need to supplement orally. (4) Protein-calorie malnutrition, moderate Is this a current diagnosis for this admission?: Yes Plan: 04/07/2019-the patient exhibits significantly decreased muscle mass. He is quite weak. Although communication was slightly limited because of the language barrier I clearly feel that he indicated he has had no appetite and has not been drinking much. I just am unable to determine the length of time. Will reassess once BMI is calculated. He will be on a regular diet and he will likely need protein supplementation. I will asked the dietitian to assess as well. (5) Hematuria, microscopic Is this a current diagnosis for this admission?: Yes Plan: 04/07/2019-the urine shows 85 red blood cells per high-power field. There is bacteria but there are no white cells. This could be an asymptomatic bacteriuria with hematuria although the etiology is unclear. The patient is on antibiotics for the pneumonia and the ceftriaxone will cover multiple potential bacteria that would cause an infection. We will continue to monitor the urine for red blood cells. (6) GERD (gastroesophageal reflux disease) Qualifiers: Esophagitis presence: without esophagitis Qualified Code(s): K21.9 - Gastro-esophageal reflux disease without esophagitis Is this a current diagnosis for this admission?: Yes Plan: 04/07/2019-the patient's home medications appear to have Carafate and Pepcid. I will continue the Pepcid 20 mg twice daily. Before ordering the Carafate I will try and explore more of his past medical history. (7) Altered mental status Qualifiers: Altered mental status type: unspecified Qualified Code(s): R41.82 - Altered mental status, unspecified Is this a current diagnosis for this admission?: Yes Plan: 04/07/2019-it is very difficult to assess because there is a language barrier. I feel that metabolic encephalopathy secondary to infection and possible dehydration is the most likely explanation. We will continue to monitor as we hydrate the patient and continue his antibiotic therapy. Unfortunately there were no family members or friends present to give us a baseline with regard to the patient's cognitive function. - Plan Summary Summary: 04/07/2019-admit for IV fluids, IV antibiotics and monitor the hematuria, correct the potassium and reassess. - Time Time Spent with patient: 35 or more minutes Medications reviewed and adjusted accordingly: Yes - Inpatient Certification Based on my medical assessment, after consideration of the patient's comorbidities, presenting symptoms, or acuity I expect that the services needed warrant INPATIENT care.: Yes I certify that my determination is in accordance with my understanding of Medicare's requirements for reasonable and necessary INPATIENT services [42 CFR 412.3e].: Yes Medical Necessity: Need For IV Fluids, Need for IV Antibiotics Post Hospital Care: D/C [employer] Supervisor Documentation
[2019-04-07] MEDS ORDERED: HYDRALAZINE HCL INJ/PF 20 MG/1 ML SDV IV ONE (17:41)
[2019-04-07 17:48] LABS: FREE T3 2.45 pg/mL (2.77-5.27); FREE T4 (FREE THYROXINE) 1.45 ng/dL (0.78-2.19)
[2019-04-07] MEDS ORDERED: HYDRALAZINE HCL INJ/PF 20 MG/1 ML SDV IV PRN (20:13)
[2019-04-07] MEDS ORDERED: METOPROLOL TARTRATE PF/INJ 5 MG/5 ML SDV IV PRN (20:14)
[2019-04-07] MEDS: METOPROLOL TARTRATE 25 MG TABLET PO SCH (22:38)
[2019-04-07] MEDS: HEPARIN SOD (PORCINE) 5,000 UNIT/ML 1 ML VIAL SUBCUT SCH (22:38)
[2019-04-07] MEDS: FAMOTIDINE 20 MG TABLET PO SCH (22:38)
[2019-04-07] MEDS: LISINOPRIL 5 MG TABLET PO SCH (22:38)
[2019-04-07] MEDS: RINGERS SOLUTION,LACTATED 1,000 ML IV PRN (22:41)
--- NOTE | 2019-04-07 22:55 | EKG REPORT ---
SEVERITY:- ABNORMAL ECG - SINUS TACHYCARDIA PROBABLE LEFT ATRIAL ABNORMALITY LEFT VENTRICULAR HYPERTROPHY INFERIOR INFARCT, AGE INDETERMINATE : Confirmed by: Karen Bates MD 07-Apr-2019 22:54:38
[2019-04-08] MEDS: OXYCODONE HCL IR 5 MG TABLET PO PRN ×3 (02:16→22:27)
[2019-04-08] MEDS: HEPARIN SOD (PORCINE) 5,000 UNIT/ML 1 ML VIAL SUBCUT SCH ×3 (05:04→22:28)
[2019-04-08 05:24] LABS: HEMATOCRIT 37.1 % (37.9-51.0); HEMOGLOBIN 12.3 g/dL (13.5-17.0); MEAN CORPUSCULAR HEMOGLOBIN 29.8 pg (27.0-33.4); MEAN CORPUSCULAR HGB CONC 33.2 g/dL (32.0-36.0); MEAN CORPUSCULAR VOLUME 90 fl (80-97); PLATELET COUNT 193 10^3/uL (150-450); RED BLOOD COUNT 4.13 10^6/uL (4.35-5.55); RED CELL DISTRIBUTION WIDTH 15.7 % (11.5-14.0); WHITE BLOOD COUNT 18.9 10^3/uL (4.0-10.5)
[2019-04-08] MEDS ORDERED: INFLUENZA QUAD (6MOS+) 2019-20 VAC 0.5 ML SYR IM ONE (05:28)
[2019-04-08 05:45] LABS: ANION GAP 12 (5-19); BLOOD UREA NITROGEN 15 mg/dL (7-20); CALCIUM 9.4 mg/dL (8.4-10.2); CARBON DIOXIDE 26 mmol/L (22-30); CHLORIDE 99 mmol/L (98-107); GLUCOSE 119 mg/dL (75-110); POTASSIUM 3.3 mmol/L (3.6-5.0)
[2019-04-08] MEDS ORDERED: DOXYCYCLINE HYCLATE 100 MG in DEXTROSE 5%-WATER 250 ML IV SCH (06:00)
[2019-04-08] MEDS: FAMOTIDINE 20 MG TABLET PO SCH ×2 (10:07→22:28)
[2019-04-08] MEDS: LISINOPRIL 5 MG TABLET PO SCH ×2 (10:07→22:29)
[2019-04-08] MEDS: METOPROLOL TARTRATE 25 MG TABLET PO SCH ×2 (10:07→22:28)
[2019-04-08] MEDS: DOXYCYCLINE HYCLATE 100 MG in DEXTROSE 5%-WATER 250 ML IV SCH ×2 (10:08→22:27)
[2019-04-08] MEDS: RINGERS SOLUTION,LACTATED 1,000 ML IV PRN (15:05)
[2019-04-08] MEDS: NORMAL SALINE 1000 ML 1,000 ML IV PRN ×2 (15:30→20:33)
--- NOTE | 2019-04-08 15:50 | PDOC PROGRESS REPORT ---
Subjective Progress Note for:: 04/08/19 Subjective:: The patient has been sleeping most of the day. He has had poor urine output and a bladder scan was done. He was retaining several 100 cc of urine. He still looks quite uncomfortable. Staff reports that he does take pills and some food. Reason For Visit: DEHYDRATION,POSSIBLE PNEUMONIA,PROTEIN CALORIE Physical Exam Vital Signs: Temp Pulse Resp BP Pulse Ox 98.1 F 73 16 153/85 H 97 04/08/19 12:00 04/08/19 12:00 04/08/19 12:00 04/08/19 12:00 04/08/19 12:00 Intake & Output 04/07/19 04/08/19 04/09/19 06:59 06:59 06:59 Intake Total 3680 490 Balance 3680 490 Weight 46 kg General appearance: PRESENT: cooperative, mild distress, thin, well-developed Head exam: PRESENT: atraumatic, normocephalic Ear exam: PRESENT: normal external ear exam. ABSENT: bleeding, drainage Mouth exam: PRESENT: dry mucosa, tongue midline Teeth exam: PRESENT: poor dentation Respiratory exam: PRESENT: rales - Bases likely due to atelectasis, symmetrical, unlabored. ABSENT: rhonchi, tachypnea, wheezes Cardiovascular exam: PRESENT: RRR, +S1, +S2 GI/Abdominal exam: PRESENT: normal bowel sounds, soft, other - Scaphoid abdomen. ABSENT: distended, guarding, tenderness Rectal exam: PRESENT: deferred Extremities exam: ABSENT: pedal edema Musculoskeletal exam: PRESENT: other - Decreased muscle mass. ABSENT: normal inspection Neurological exam: PRESENT: awake, other - Unable to assess further. ABSENT: alert - Somnolent Psychiatric exam: PRESENT: flat affect. ABSENT: agitated, anxious Results Laboratory Results: 04/08/19 05:09 04/08/19 05:09 04/07/19 04/07/19 04/08/19 14:25 16:00 05:09 WBC 18.9 H RBC 4.13 L Hgb 12.3 L Hct 37.1 L MCV 90 MCH 29.8 MCHC 33.2 RDW 15.7 H Plt Count 193 Sodium Potassium Chloride Carbon Dioxide Anion Gap BUN Creatinine Est GFR ( Amer) Glucose Calcium Magnesium Free T4 1.45 Free T3 pg/mL 2.45 L Urine Color PRIYA Urine Appearance CLOUDY Urine pH 5.0 Ur Specific [place] 1.028 Urine Protein 100 H Urine Glucose (UA) NEGATIVE Urine Ketones 20 H Urine Blood SMALL H Urine Nitrite POSITIVE H Ur Leukocyte Esterase NEGATIVE Urine RBC (Auto) 85 04/08/19 05:09 WBC RBC Hgb Hct MCV MCH MCHC RDW Plt Count Sodium 136.8 L Potassium 3.3 L Chloride 99 Carbon Dioxide 26 Anion Gap 12 BUN 15 Creatinine 0.31 L Est GFR ( Amer) > 60 Glucose 119 H Calcium 9.4 Magnesium 1.6 Free T4 Free T3 pg/mL Urine Color Urine Appearance Urine pH Ur Specific [place] Urine Protein Urine Glucose (UA) Urine Ketones Urine Blood Urine Nitrite Ur Leukocyte Esterase Urine RBC (Auto) 04/07/19 14:35 Blood Blood Culture (PCR) - Final Staphylococcus Species 04/07/19 14:25 Troponin I < 0.012 Impressions: Chest X-Ray 04/07/19 14:16 IMPRESSION: There is heterogeneous opacity of the right upper lobe, new compared to prior examination and concerning for infection. Cardiomegaly. Head CT 04/07/19 14:16 IMPRESSION: No acute intracranial pathology. EVIDENCE OF ACUTE STROKE: NO. Assessment and Plan - Diagnosis (1) Right upper lobe pneumonia Qualifiers: Pneumonia type: due to unspecified organism Qualified Code(s): J18.9 - Pneumonia, unspecified organism Is this a current diagnosis for this admission?: Yes Plan: 04/07/2019-patient with community-acquired pneumonia. Multiple agents are possible including atypical bacteria such as pneumococcus, atypical bacteria and viral is unlikely due to the infiltrate noted on chest x-ray. We will continue the doxycycline and ceftriaxone started in the emergency department. We will continue to monitor the white blood cell count. 04/08/2019-white blood cell count is slightly better. Continue antibiotic therapy. (2) Leukocytosis Qualifiers: Leukocytosis type: other Qualified Code(s): D72.828 - Other elevated white blood cell count Is this a current diagnosis for this admission?: Yes Plan: 04/07/2019-the patient reveals a leukocytosis of 20,000. The pneumonia is the most likely etiology. We will continue to monitor as the infection is treated. 04/08/2019-improving with antibiotics (3) Hypokalemia Is this a current diagnosis for this admission?: Yes Plan: 04/07/2019-the patient is receiving lactated Ringer's. This does have some p otassium chloride. I will recheck the potassium in the morning. We may need to supplement orally. 04/08/2019-no better with lactated Ringer's. IV potassium administered. Will start oral potassium for tomorrow. Continue to monitor electrolytes. (4) Protein-calorie malnutrition, moderate Is this a current diagnosis for this admission?: Yes Plan: 04/07/2019-the patient exhibits significantly decreased muscle mass. He is quit e weak. Although communication was slightly limited because of the language barrier I clearly feel that he indicated he has had no appetite and has not been drinking much. I just am unable to determine the length of time. Will reassess once BMI is calculated. He will be on a regular diet and he will likely need protein supplementation. I will asked the dietitian to assess as well. 04/08/2019-BMI is only 15.9. The dietitian will see the patient. The patient will increase caloric intake to try to reverse the weight loss and general health. (5) Hematuria, microscopic Is this a current diagnosis for this admission?: Yes Plan: 04/07/2019-the urine shows 85 red blood cells per high-power field. There is bacteria but there are no white cells. This could be an asymptomatic bacteriuria with hematuria although the etiology is unclear. The patient is on antibiotics for the pneumonia and the ceftriaxone will cover multiple potential bacteria that would cause an infection. We will continue to monitor the urine for red blood cells. 04/08/2019-no evidence of infection. Continue to monitor. (6) GERD (gastroesophageal reflux disease) Qualifiers: Esophagitis presence: without esophagitis Qualified Code(s): K21.9 - Gastro-esophageal reflux disease without esophagitis Is this a current diagnosis for this admission?: Yes Plan: 04/07/2019-the patient's home medications appear to have Carafate and Pepcid. I will continue the Pepcid 20 mg twice daily. Before ordering the Carafate I will try and explore more of his past medical history. 04/08/2019-continue Pepcid at this time. (7) Altered mental status Qualifiers: Altered mental status type: unspecified Qualified Code(s): R41.82 - Altered mental status, unspecified Is this a current diagnosis for this admission?: Yes Plan: 04/07/2019-it is very difficult to assess because there is a language barrier. I feel that metabolic encephalopathy secondary to infection and possible dehydration is the most likely explanation. We will continue to monitor as we hydrate the patient and continue his antibiotic therapy. Unfortunately there were no family members or friends present to give us a baseline with regard to the patient's cognitive function. 04/08/2019-the patient was not very communicative today. He is having discomfort from urinary retention. Staff reports that despite language barrier they are able to communicate with the patient. We will continue to assess. (8) Hyperthyroidism Is this a current diagnosis for this admission?: Yes Plan: 04/08/2019-the TSH is low. The free T4 is normal and the free T3 is slightly low. We will check a reverse T3 and consider thyroid ultrasound and/or radioactive iodine uptake test.. - Plan Summary Summary: 04/07/2019-admit for IV fluids, IV antibiotics and monitor the hematuria, correct the potassium and reassess. - Time Time Spent with patient: 15-24 minutes Medications reviewed and adjusted accordingly: Yes
[2019-04-08] MEDS ORDERED: POTASSI CL 20 MEQ/50 ML RIDER 20 MEQ/50 ML RTUPB IV ONE (16:30)
[2019-04-08] MEDS: CEFTRIAXONE 1 GM/D5W RTU 1 GM/50 ML RTUPB IV SCH (20:33)
[2019-04-09 06:00] LABS: HEMATOCRIT 33.8 % (37.9-51.0); HEMOGLOBIN 11.4 g/dL (13.5-17.0); MEAN CORPUSCULAR HEMOGLOBIN 30.2 pg (27.0-33.4); MEAN CORPUSCULAR HGB CONC 33.7 g/dL (32.0-36.0); MEAN CORPUSCULAR VOLUME 89 fl (80-97); PLATELET COUNT 206 10^3/uL (150-450); RED BLOOD COUNT 3.79 10^6/uL (4.35-5.55); RED CELL DISTRIBUTION WIDTH 15.7 % (11.5-14.0)
[2019-04-09 06:16] LABS: ANION GAP 9 (5-19); BLOOD UREA NITROGEN 7 mg/dL (7-20); CALCIUM 8.7 mg/dL (8.4-10.2); CARBON DIOXIDE 25 mmol/L (22-30); CHLORIDE 100 mmol/L (98-107); GLUCOSE 84 mg/dL (75-110)
[2019-04-09] MEDS: NORMAL SALINE 1000 ML 1,000 ML IV PRN ×3 (06:24→23:58)
[2019-04-09] MEDS: HEPARIN SOD (PORCINE) 5,000 UNIT/ML 1 ML VIAL SUBCUT SCH ×3 (06:25→23:15)
[2019-04-09] MEDS: POTASSIUM CHLORIDE 10 MEQ TABLET.ER PO SCH ×2 (09:03→18:15)
[2019-04-09] MEDS: DOXYCYCLINE HYCLATE 100 MG in DEXTROSE 5%-WATER 250 ML IV SCH ×2 (09:06→23:05)
[2019-04-09] MEDS: POTASSIUM CHLORIDE 20 MEQ PACKET PO SCH (09:06)
[2019-04-09] MEDS: FAMOTIDINE 20 MG TABLET PO SCH ×2 (09:06→23:13)
[2019-04-09] MEDS: LISINOPRIL 5 MG TABLET PO SCH ×2 (09:06→23:08)
[2019-04-09] MEDS: METOPROLOL TARTRATE 25 MG TABLET PO SCH ×2 (09:06→23:12)
--- NOTE | 2019-04-09 13:53 | RADIOLOGY REPORT (SQ) ---
EXAM DESCRIPTION: CHEST SINGLE VIEW COMPLETED DATE/TIME: 04/09/2019 11:29 am REASON FOR STUDY: leukocytosis, fever COMPARISON: 04/07/2019 TECHNIQUE: Single frontal radiographic view of the chest acquired. NUMBER OF VIEWS: One view. LIMITATIONS: None. FINDINGS: LUNGS AND PLEURA: No pneumothorax. Similar alveolar airspace opacities in the right upper lobe with some increased interstitial -alveolar opacities in the right lower lobe. No pleural effus ion. MEDIASTINUM AND HILAR STRUCTURES: Stable. HEART AND VASCULAR STRUCTURES: Stable. BONES: No acute findings. HARDWARE: None in the chest. OTHER: No other significant finding. IMPRESSION: Similar alveolar airspace opacities in the right upper lobe with some increased intersti tial -alveolar opacities in the right lower lobe. No pleural effusion. TECHNICAL DOCUMENTATION: JOB ID: [id number] [employer]- All Rights Reserved Reading location - IP/workstation name: [email or web address]
[2019-04-09 14:09] LABS: APPEARANCE,URINE CLEAR; BILIRUBIN,URINE NEGATIVE (NEGATIVE); COLOR,URINE YELLOW; GLUCOSE, URINE 50 mg/dL (NEGATIVE); KETONES,URINE NEGATIVE (NEGATIVE); PROTEIN,URINE NEGATIVE (NEGATIVE); URINE SPECIFIC GRAVITY 1.006
[2019-04-09] MEDS: GABAPENTIN 100 MG CAPSULE PO SCH ×2 (14:35→23:12)
[2019-04-09] MEDS: CEFTRIAXONE 1 GM/D5W RTU 1 GM/50 ML RTUPB IV SCH (18:15)
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
[2019-04-10] MEDS: GABAPENTIN 100 MG CAPSULE PO SCH ×2 (06:08→13:29)
[2019-04-10] MEDS: HEPARIN SOD (PORCINE) 5,000 UNIT/ML 1 ML VIAL SUBCUT SCH ×2 (06:08→13:24)
[2019-04-10 06:32] LABS: HEMATOCRIT 38.1 % (37.9-51.0); HEMOGLOBIN 12.8 g/dL (13.5-17.0); MEAN CORPUSCULAR HEMOGLOBIN 29.7 pg (27.0-33.4); MEAN CORPUSCULAR HGB CONC 33.4 g/dL (32.0-36.0); MEAN CORPUSCULAR VOLUME 89 fl (80-97); PLATELET COUNT 255 10^3/uL (150-450); RED BLOOD COUNT 4.29 10^6/uL (4.35-5.55); RED CELL DISTRIBUTION WIDTH 15.9 % (11.5-14.0); WHITE BLOOD COUNT 16.3 10^3/uL (4.0-10.5)
[2019-04-10 06:52] LABS: ANION GAP 10 (5-19); BLOOD UREA NITROGEN 3 mg/dL (7-20); CALCIUM 9.5 mg/dL (8.4-10.2); CARBON DIOXIDE 27 mmol/L (22-30); CHLORIDE 101 mmol/L (98-107); GLUCOSE 99 mg/dL (75-110); POTASSIUM 3.6 mmol/L (3.6-5.0)
[2019-04-10] MEDS: OXYCODONE HCL IR 5 MG TABLET PO PRN ×2 (08:06→14:17)
[2019-04-10] MEDS: POTASSIUM CHLORIDE 10 MEQ TABLET.ER PO SCH ×2 (08:06→17:15)
[2019-04-10] MEDS: LISINOPRIL 5 MG TABLET PO SCH (09:54)
[2019-04-10] MEDS: FAMOTIDINE 20 MG TABLET PO SCH (09:56)
[2019-04-10] MEDS: MAGNESIUM SULFATE/D5W 1 GM/100 ML RTUPB IV SCH ×2 (09:58→13:28)
[2019-04-10] MEDS ORDERED: MULTIVITAMIN TABLET PO SCH (10:00)
[2019-04-10] MEDS ORDERED: FOLIC ACID 1 MG TABLET PO SCH (10:00)
[2019-04-10] MEDS ORDERED: THIAMINE HCL 100 MG TABLET PO SCH (10:00)
[2019-04-10] MEDS ORDERED: DOXYCYCLINE HYCLATE 100 MG TABLET PO SCH (10:00)
[2019-04-10] MEDS ORDERED: METOPROLOL TARTRATE 25 MG TABLET PO SCH (10:00)
[2019-04-10] MEDS: POTASSIUM CHLORIDE 20 MEQ PACKET PO SCH (10:20)
--- NOTE | 2019-04-10 11:14 | RADIOLOGY REPORT (SQ) ---
EXAM DESCRIPTION: WRIST LEFT 2 VIEWS COMPLETED DATE/TIME: 04/10/2019 10:38 am REASON FOR STUDY: left wrist pain COMPARISON: None. NUMBER OF VIEWS: Two views. TECHNIQUE: AP and lateral radiographic images acquired of the left wrist. LIMITATIONS: None. FINDINGS: MINERALIZATION: Normal. BONES: No acute fracture or dislocation. No worrisome bone lesions. Normal alignment. SOFT TISSUES: No soft tissue swelling. No foreign body. OTHER: No other significant finding. IMPRESSION: NEGATIVE STUDY OF THE LEFT WRIST. NO RADIOGRAPHIC EVIDENCE OF ACUTE INJURY. TECHNICAL DOCUMENTATION: JOB ID: [id number] [employer]- All Rights Reserved Reading location - IP/workstation name: [email or web address]
[2019-04-10] MEDS ORDERED: MAGNESIUM SULFATE/D5W 1 GM/100 ML RTUPB IV ONE (13:19)
[2019-04-10] MEDS: NORMAL SALINE 1000 ML 1,000 ML IV PRN (13:33)
[2019-04-10 16:32] VITALS: BP 138/82
[2019-04-10] MEDS ORDERED: HEPARIN SOD (PORCINE) 1,000 UNIT/ML 10 ML VIAL IV ONE (16:55)
[2019-04-10] MEDS ORDERED: HEPARIN SODIUM,PORCINE/D5W 25,000 UNIT/250 ML RTUINJ IV PRN (16:55)
[2019-04-10] MEDS ORDERED: GLUCAGON,HUMAN RECOMB 1 MG INJ SUBCUT PRN (17:17)
[2019-04-10] MEDS ORDERED: DEXTROSE 50%-WATER 25 GM/50 ML DISP.SYRIN IV PRN ×2 (17:17)
[2019-04-10] MEDS ORDERED: DEXTROSE 40% GEL 15 GM TUBE PO PRN ×2 (17:17)
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
[2019-04-10] MEDS: CEFTRIAXONE 1 GM/D5W RTU 1 GM/50 ML RTUPB IV SCH (17:46)
[2019-04-10 17:47] LABS: ABSOLUTE BASOPHILS # (AUTO) 0.1 10^3/uL (0.0-0.2); ABSOLUTE EOSINOPHILS # (AUTO) 0.9 10^3/uL (0.0-0.6); ABSOLUTE LYMPHOCYTES (AUTO) 1.1 10^3/uL (0.5-4.7); ABSOLUTE NEUT (AUTO) 12.1 10^3/uL (1.7-8.2); BASOPHILS % (AUTO) 0.6 % (0-2); EOSINOPHILS % (AUTO) 5.9 % (0-6); HEMATOCRIT 35.6 % (37.9-51.0); HEMOGLOBIN 11.9 g/dL (13.5-17.0); LYMPHOCYTES % (AUTO) 7.2 % (13-45); MEAN CORPUSCULAR HEMOGLOBIN 29.8 pg (27.0-33.4); MEAN CORPUSCULAR HGB CONC 33.5 g/dL (32.0-36.0); MEAN CORPUSCULAR VOLUME 89 fl (80-97); MONOCYTES % (AUTO) 6.7 % (3-13); PLATELET COUNT 245 10^3/uL (150-450); RED BLOOD COUNT 3.99 10^6/uL (4.35-5.55); RED CELL DISTRIBUTION WIDTH 15.8 % (11.5-14.0); SEGMENTED NEUTROPHILS % (AUTO) 79.6 % (42-78); TOTAL CELLS COUNTED % (AUTO) 100 %; WHITE BLOOD COUNT 15.2 10^3/uL (4.0-10.5)
[2019-04-10 17:52] LABS: INTERNATIONAL RATION (INR) 1.19; PROTHROMBIN TIME 15.1 SEC (11.4-15.4)
[2019-04-10 17:53] LABS: PARTIAL THROMBOPLASTIN TIME 30.6 SEC (23.5-35.8)
[2019-04-10] MEDS ORDERED: HEPARIN SOD (PORCINE) 1,000 UNIT/ML 10 ML VIAL IV PRN (19:57)
--- NOTE | 2019-04-11 15:31 | XCELERA REPORT ---
[address] [address] Lower Extremity Arterial Evaluation Name: AHRSH KELLEY Age: 63 yrs Gender: Male : 1955 Patient Status: Inpatient Patient Location: [facility]^A Study Date: 04/10/2019 03:46 PM Procedure: A color flow and duplex scan of the lower extremity arteries was performed on the left with velocity and waveform anaylsis. Reason For Study: dusky, increased pain, unable to palpate pulse Ordering Physician: CATHI CHOWDHURY Performed By: Breezy Zarate Measurements and Calculations Right Left EDUCATION DIAGNOSTICIAN PSV 50.0 14.9 cm/sec Prox PFA PSV -22.2 cm/sec Prox SFA PSV -12.4 cm/sec Mid SFA PSV -10.0 cm/sec Dist SFA PSV -7.7 cm/sec Prox Pop A PSV 8.6 cm/sec Dist Pop A PSV -10.4 cm/sec Dist MARIPOSA PSV 6.3 cm/sec Dist SHOOTER HELPER PSV -5.7 cm/sec Dist Juan Carlos A 8.3 cm/sec PSV Maximo Pedis PSV -39.3 6.5 cm/sec Right Side Arterial Evaluation Very limited evaluation shows Normal velocity, triphasic signal at the EDUCATION DIAGNOSTICIAN. Left Side Arterial Evaluation Extremely low velocity and monophasic waveforms noted from the Common Femoral artery to the infrageniculate vessels . Almost trickle flow at the foot level. Collaterals noted at the Femoral level. Ankle Brachial index not done. Critical Findings Discussed with Cathi Kyle. Interpretation Summary Severe hemodynamically significant lesions in the right lower extremity only, on duplex imaging, at rest. Barely any flow in the left lower extremity. Attempts at compensation noted. The findings are compatible with limb loss. Intervention should be considered. Very limited evaluation on the right is insufficient for conclusions, however what was evaluated is normal. : CATHI CHOWDHURY > Jose J Nur
--- NOTE | 2019-04-11 15:33 | XCELERA REPORT ---
[address] [address] Transthoracic Echocardiogram Report Name: HARSH KELLEY Age: 63 yrs Gender: Male : 1955 Patient Status: [facility]: 04/10/2019 02:58 PM Height: 67 in Weight: 112 lb BSA: 1.6 m2 Procedure: A two-dimensional transthoracic echocardiogram with color flow and Doppler was performed. The study was technically difficult with many images being suboptimal in quality. Reason For Study: dyspnea,/ hypoxia, / CHF History: dyspnea,/ hypoxia, / CHF. Ordering Physician: GABRIELA CHOWDHURY Performed By: Breezy Zarate Interpretation Summary The left ventricle is normal in size. There is normal left ventricular wall thickness. LV EF is > than 65% Left ventricular systolic function is normal. Doppler measurements suggest normal left ventricular diastolic function The left ventricular wall motion is normal. There is no thrombus. No ASD, VSD, or PFO seen. The right ventricle is not well visualized secondary to technical limitations Right atrium not well visualized secondary to technical limitations The left atrial size is normal. There is no evidence of mitral valve prolapse. There is no vegetation seen on the mitral valve. There is no mitral valve stenosis. There is a trace amount of mitral regurgitation There is no aortic valvular vegetation. There is no aortic valve stenosis There is no LVOT obstruction. There is a mild amount of aortic regurgitation There is no tricuspid stenosis. There is a trace amount of tricuspid regurgitation Tricuspid regurgitation jet envelope not well defined to measure RV systolic pressure accurately. There is no pulmonic valvular stenosis. There is no pulmonic valvular regurgitation. The aortic root is mildly dilated The inferior vena cava appeared dilated and decreased < 50% with respiration (RAP 15-20 mmHg) There is no pericardial effusion. MMode/2D Measurements & Calculations RVDd: 1.8 cm LVIDd: 4.9 cm FS: 36.2 % Ao root diam: 4.2 cm IVSd: 0.94 cm LVIDs: 3.1 cm EDV(Teich): 111.9 ml Ao root area: 13.7 cm2 LVPWd: 0.94 cm ESV(Teich): 38.4 ml LA dimension: 3.1 cm EF(Teich): 65.7 % Doppler Measurements & Calculations MV E max ronda: MV P1/2t max ronda: Ao V2 max: AI max ronda: 86.9 cm/sec 82.3 cm/sec 142.5 cm/sec 394.3 cm/sec MV A max ronda: MV P1/2t: 78.1 msec Ao max P.1 mmHgAI max P.2 cm/sec MVA(P1/2t): 2.8 cm2 62.2 mmHg MV E/A: 1.5 MV dec slope: AI dec slope: 258.5 cm/sec2 308.6 cm/sec2 AI P1/2t: MV dec time: 446.8 msec 0.21 sec LV V1 max PG: PA V2 max: AV P1/2t-pr_phl: MV P1/2t-pr_phl: 6.4 mmHg 85.9 cm/sec 446.8 msec 78.1 msec LV V1 max: PA max P.0 mmHg 126.4 cm/sec Left Ventricle The left ventricle is normal in size. There is normal left ventricular wall thickness. LV EF is > than 65%. Left ventricular systolic function is normal. Doppler measurements suggest normal left ventricular diastolic function. The left ventricular wall motion is normal. There is no thrombus. No ASD, VSD, or PFO seen. Right Ventricle The right ventricle is not well visualized secondary to technical limitations. Atria Right atrium not well visualized secondary to technical limitations. The left atrial size is normal. Mitral Valve There is no evidence of mitral valve prolapse. There is no vegetation seen on the mitral valve. There is no mitral valve stenosis. There is a trace amount of mitral regurgitation. Aortic Valve There is no aortic valvular vegetation. There is no aortic valve stenosis. There is no LVOT obstruction. There is a mild amount of aortic regurgitation. Tricuspid Valve There is no tricuspid stenosis. There is a trace amount of tricuspid regurgitation. Tricuspid regurgitation jet envelope not well defined to measure RV systolic pressure accurately. Pulmonic Valve There is no pulmonic valvular stenosis. There is no pulmonic valvular regurgitation. Great Vessels The aortic root is mildly dilated. The inferior vena cava appeared dilated and decreased < 50% with respiration (RAP 15-20 mmHg). Effusions There is no pericardial effusion. : GABRIELA CHOWDHURY Lakshmi
== END 2019-04-10 18:05 | disposition short-term general hospital (02) | DRG 640 ==
LOC: ER 13:57 → EH 16:31 → 5 19:39
PROVIDERS: ADMIT Hospitalist; ATTEND Hospitalist
DX: E86.0 Dehydration (principal); J18.9 Pneumonia, unspecified organism; E44.0 Moderate protein-calorie malnutrition; N30.01 Acute cystitis with hematuria; K21.9 Gastro-esophageal reflux disease without esophagitis; E87.6 Hypokalemia; E83.42 Hypomagnesemia; E05.90 Thyrotoxicosis, unspecified without thyrotoxic crisis or storm; F17.210 Nicotine dependence, cigarettes, uncomplicated; I10 Essential (primary) hypertension
CPT/HCPCS: 36415; 51701; 70450; 71045; 80048; 80053; 81001; 83605; 83735; 84153; 84439; 84443; 84481; 84484; 85025; 85027; 85610; 85730; 87040; 87077; 87150; 87186; 93005; 93010; 93306; 93926; 96360; 96361; 99285; C1758; J0360; J0696; J1644; J3475; J3480; J3490; J7030; J7060; J7120